=== PATIENT | female | born 1960 | race Caucasian/White ===

== ENCOUNTER → 2016-07-07 | Outpatient (CLI) | payer BC, OTHER ==
--- NOTE | 2016-07-07 19:23 | CT ---
CT Scan of the Chest (Without Contrast) high-resolution Clinical Indications: Bronchiectasis on outside examination. Comparison: There is a scan outside film limited chest dated February 20, 2016 from [facility]. No report was included. Technique: Multidetector helical CT was performed from the superior thoracic inlet to the diaphragm. No intravenous contrast was given. The radiologist manipulated images at the computer workstation. Patient was imaged in the prone and supine positions and with inspiration and expiration per high-re solution CT protocol. Dose reduction techniques were utilized. Findings: There is some upper lobe diffuse small nodules with a tree-in-bud distribution. In the lat eral right upper lobe, not included on the prior examination, is an area of patchy consolidation or n odularity measuring 11 x 16 mm. I suspect this is infectious or inflammatory given its configuration. Other areas of tree-in-bud opacity with some mild mucous plugging are present in that area. The righ t middle lobe has some mild bronchiectatic changes, some mild bronchial wall thickening and mucous pl ugging. This is also present in the lingula. The lower lobes appear relatively spared. Nonspecific lymph nodes are present in the axilla. There is no significant mediastinal adenopathy. Br east tissue is symmetric and unremarkable. Limited examination of the upper abdomen reveals a splenul e. Impression: There is a mixed of upper lobar tree-in-bud opacities and upper lobar and middle lobe br onchiectasis with mucous plugging. This combination makes the differential slightly wider as it does not neatly fit into a single category, but considerations would include airways disease, hypersensit ivity pneumonitis allergic bronchopulmonary aspergillosis, severe asthma. and mycobacteria avium intr acellulare infection. Other infections such as bacterial bronchopneumonia and TB are not completely e xcluded Overall, the consolidative or nodular component is small and predominately limited to the lat eral right upper lobe, but the tree-in-bud opacities, bronchiectasis and mucous plugging are scattere d throughout the lingula, right middle lobe and inferior portions of the upper lobes. Comparison is o nly minimally helpful as it is a very limited portion of the chest. A follow-up required test result notification was sent via the [employer] service, 6:39:38 PM, 07/07/2016 , [employer] Message ID [id number].
== END ==
LOC: FIMAGING 15:47
DX: J47.9 Bronchiectasis, uncomplicated (principal)

== ENCOUNTER → 2016-11-12 | Outpatient (CLI) | payer BC | LOC: FIMAGING 11:21 | PROVIDERS: ATTEND Obstetrics & Gynecology | DX: Z12.31 Encounter for screening mammogram for malignant neoplasm of breast (principal) | CPT/HCPCS: G0202 ==

== ENCOUNTER → 2017-11-18 | Outpatient (CLI) | payer BC | LOC: FIMAGING 14:57 | PROVIDERS: ATTEND Obstetrics & Gynecology | DX: Z12.31 Encounter for screening mammogram for malignant neoplasm of breast (principal) ==

== ENCOUNTER → 2018-11-29 | Outpatient (CLI) | payer BC | LOC: FIMAGING 11:51 ==